=== PATIENT | male | born 1995 | race Two or more races ===

== ENCOUNTER 2019-10-02 08:15 | Emergency (ER) | payer SELFPAY ==
[~2019-10-02] VITALS: Ht 172.7 cm; Wt 95.3 kg
[2019-10-02] MEDS ORDERED: Sodium Bicarbonate 50ml Carp IV ONE (08:30)
[2019-10-02] MEDS ORDERED: Lidocaine 1% 10mg/ml/EPI 0.01mg/ml 20ml INJ ONE (08:30)
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
[2019-10-02 08:35] VITALS: BP 116/61
--- NOTE | 2019-10-02 08:40 | NUR ---
ED Nurse Note: pt walked in to ED with family member due to tripped and fall injury yesterday around midnight. pt fell from stairs. per pt, it happened after eating brownie. deep laceration noted on left eyebrow and nose. no active bleeding noted. RN able to cleaned dried blood from wound site. pt tolerated the procedure without difficulty. denies nausea, vomiting or vision changes after fall. AAO x4. respirations even and non-labored noted. ambulatory with steady gait. skin warm to touch. will wait for the CT scan.
--- NOTE | 2019-10-02 08:47 | NUR ---
ED Nurse Note: pt came back from CT and dr. Mar at the bed side for suture.
[2019-10-02] MEDS ORDERED: IBUPROFEN600 MG ORAL (09:07)
[2019-10-02] MEDS ORDERED: CEPHALEXIN500 MG ORAL (09:07)
[2019-10-02] MEDS ORDERED: Neosporin Oint Ud Pkt TOPIC ONE (09:15)
[2019-10-02] MEDS ORDERED: Cephalexin 500mg cap ORAL ONE (09:15)
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
[2019-10-02 09:37] VITALS: BP 121/71
--- NOTE | 2019-10-02 09:37 | NUR ---
ER DISCHARGE NOTE: Patient is cleared to be discharged per ERMD with mom, pt is aox4, on room air, with stable vital signs. pt was given dc and prescription instructions, pt was able to verbalize understanding, pt id band removed without complications. pt is able to ambulate with steady gait. pt took all belongings.
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
== END 2019-10-02 09:38 | disposition home or self-care (01) ==
LOC: EMR 08:45
DX: S01.81XA Laceration without foreign body of other part of head, initial encounter (principal); S02.2XXA Fracture of nasal bones, initial encounter for closed fracture; W10.9XXA Fall (on) (from) unspecified stairs and steps, initial encounter; Y92.9 Unspecified place or not applicable
CPT/HCPCS: 70450; 96374; 99284